=== PATIENT | female | born 1965 | race Caucasian/White ===

== ENCOUNTER → 2017-04-23 | Outpatient (CLI) | payer OTHER ==
--- NOTE | 2017-04-23 17:36 | US ---
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 Slightly elevated parathyroid labs GLAND SIZE: Right Lobe: 5.7 x 2.1 x 1.2 cm Overall Parenchyma: heterogenous Left Lobe: 5.3 x 1.3 x 1.4 cm Overall Parenchyma: heterogeneous Isthmus Thickness: 0.2 cm NODULES RIGHT: # of nodules measured on right: 2 1. 1.0 X 0.7 x 0.8 cm hypoechoic solid nodule at the mid pole with well-defined margins; interrupte d peripheral calcification. This nodule is wider than tall and shows intranodular vascularity. 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 1.6 X 0.7 x 1.4 cm isoechoic solid nodule at the mid pole with well-defined margins. This nodule is wider than tall and shows no intranodular vascularity. Prior size: YOUTH WORKER LEFT: # of nodules measured on left: 1 1. 1.2 X 1.0 x 1.0 cm hypoechoic solid nodule at the lower pole with well-defined margins. This no dule is wider than tall and shows intranodular vascularity. Prior size: YOUTH WORKER ISTHMUS: # of nodules measured in the isthmus: 0 Bilateral neck scanned, no evidence of lymphadenopathy. did not see any parathyroid tissue on the right left parathyroid seen and is 1.5cm IMPRESSION: The thyroid gland is enlarged with bilateral hypoechoic areas consistent with multinodular goiter. No dominant thyroid mass. Oval-shaped hypoechoic 16 x 7 mm mass posterior to the left thyroid gland consistent with an enlarged parathyroid gland.
== END | disposition home or self-care (01) ==
LOC: RADUSWWP 16:24
PROVIDERS: ATTEND Family Medicine
DX: E04.2 Nontoxic multinodular goiter (principal)
CPT/HCPCS: 76536

== ENCOUNTER → 2017-05-12 | Outpatient (CLI) | payer OTHER ==
--- NOTE | 2017-05-13 10:21 | MM ---
Reason for exam: screening (asymptomatic). Last mammogram was performed 1 year and 1 month ago. Physical Findings: A clinical breast exam by your physician is recommended on an annual basis and results should be correlated with mammographic findings. MG Screening Mammo w CAD Bilateral CC and MLO view(s) were taken. Prior study comparison: April 09, 2016, bilateral MG screening mammo w CAD. October 09, 2014, mammogram, performed at [facility]. February 24, 2013, mammogram, performed at [facility]. No significant changes when compared with prior studies. ASSESSMENT: Benign, BI-RAD 2 RECOMMENDATION: Routine screening mammogram of both breasts in 1 year.
== END | disposition home or self-care (01) ==
LOC: RADMAMWWP 16:53
PROVIDERS: ATTEND Family Medicine
DX: Z12.31 Encounter for screening mammogram for malignant neoplasm of breast (principal)

== ENCOUNTER 2017-06-08 12:20 | Day surgery (SDC) | payer OTHER ==
[2017-06-08 12:53] VITALS: RESP 16; TEMP 97.7
[2017-06-08 14:12] VITALS: BP 131/68; PULSE 63
--- NOTE | 2017-06-08 15:05 | US ---
ULTRASOUND GUIDED FNA THYROID BIOPSY: CLINICAL HISTORY: 2 greater than 1 cm right thyroid nodules and a single greater than 1 cm left thyro id nodules FINDINGS: The procedure was explained to the patient. The risks, complications, benefits and alternatives were discussed and any questions were answered. Informed consent was obtained. Patient was placed supin e on the ultrasound table and prepped and draped in the usual sterile fashion. Utilizing a 25 gauge needle, five passes were made into the 3 requested nodules. Patient was stable throughout the procedure. Pathology is pending. All elements of maximal barrier technique were utilized. IMPRESSION: 1. Successful ultrasound guided FNA thyroid biopsy.
== END 2017-06-08 14:00 | disposition home or self-care (01) ==
LOC: RADPROMAIN 12:20
PROVIDERS: ATTEND Physician Assistant Medical
DX: E04.2 Nontoxic multinodular goiter (principal); E21.3 Hyperparathyroidism, unspecified
CPT/HCPCS: 10022; 76942; 88173; 88305

== ENCOUNTER → 2017-06-30 | Outpatient (CLI) | payer OTHER ==
--- NOTE | 2017-06-30 12:22 | BD ---
EXAMINATION TYPE: MG DEXA axial skeleton. DATE OF EXAM: 06/30/2017 COMPARISON: NONE CLINICAL HISTORY: hyperparathyroidism and postmenopausal female Height: 5'10 Weight: 196 FRAX RISK QUESTIONS: Alcohol (3 or more units per day): no Family History (Parent hip fracture): no Glucocorticoids (More than 3mos): no (Ex: prednisone, prednisolone, methylprednisolone, dexamethasone, and hydrocortisone). History of Fracture in Adulthood: no Secondary Osteoporosis: 1. Type 1 Diabetes: no 2. Hyperthyroidism: no 3. Menopause before 45: no 4. Malnutrition: no 5. Chronic liver disease: no Rheumatoid Arthritis: no Current Tobacco Use: no RISK FACTORS HISTORY OF: If Premenopausal, do you have irregular periods: Hyperparathyroidism: yes MEDICATIONS: Additional Medications: Additional History: hyperparathyroid EXAM MEASUREMENTS: Bone mineral densitometry was performed using the [employer] System. Bone mineral density as measured about the Lumbar spine is: ----- L1-L4(G/cm2): 1.382 T Score Values are as follows: ----- L2: 1.4 ----- L3: 1.8 ----- L4: 2.0 ----- L1-L4: 1.7 Bone mineral density about the R hip (g/cm2): 0.957 Bone mineral density about the L hip (g/cm2): 1.009 T Score values are as follows: -----R Neck: -0.6 -----L Neck: -0.2 -----R Total: 0.9 -----L Total: 0.7 IMPRESSION: Normal (Values between +1 and -1 indicate normal bone mass). Consider repeating this study in 5 year s or sooner if there is some new clinical indication. NOTE: T-SCORE=SD OF THE YOUNG ADULT MEAN.
== END | disposition home or self-care (01) ==
LOC: RADBDWWP 11:14
PROVIDERS: ATTEND Family Medicine
DX: E21.3 Hyperparathyroidism, unspecified (principal)
CPT/HCPCS: 77080

== ENCOUNTER → 2019-05-18 | Outpatient (CLI) | payer OTHER ==
--- NOTE | 2019-05-19 09:05 | MM ---
Reason for exam: screening (asymptomatic). Last mammogram was performed 2 years ago. History: Patient is postmenopausal. Physical Findings: A clinical breast exam by your physician is recommended on an annual basis and results should be correlated with mammographic findings. MG Screening Mammo w CAD Bilateral CC and MLO view(s) were taken. Prior study comparison: May 12, 2017, bilateral MG screening mammo w CAD. April 09, 2016, bilateral MG screening mammo w CAD. The breast tissue is heterogeneously dense. This may lower the sensitivity of mammography. No suspicious abnormality. Stable left central medial middle depth focal asymmetry. No significant changes when compared with prior studies. ASSESSMENT: Negative, BI-RAD 1 RECOMMENDATION: Routine screening mammogram of both breasts in 1 year.
== END | disposition home or self-care (01) ==
LOC: RADMAMWWP 10:38
DX: Z12.31 Encounter for screening mammogram for malignant neoplasm of breast (principal)
CPT/HCPCS: 77067

== ENCOUNTER → 2020-05-28 | Outpatient (CLI) | payer OTHER ==
--- NOTE | 2020-05-29 09:20 | MM ---
Reason for exam: screening (asymptomatic). Last mammogram was performed 1 year ago. History: Patient is postmenopausal. Physical Findings: A clinical breast exam by your physician is recommended on an annual basis and results should be correlated with mammographic findings. MG Screening Mammo w CAD Bilateral CC and MLO view(s) were taken. Prior study comparison: May 18, 2019, bilateral MG screening mammo w CAD. May 12, 2017, bilateral MG screening mammo w CAD. The breast tissue is heterogeneously dense. This may lower the sensitivity of mammography. There is chronic nodularity in the left breast. No significant changes when compared with prior studies. ASSESSMENT: Benign, BI-RAD 2 RECOMMENDATION: Routine screening mammogram of both breasts in 1 year.
== END | disposition home or self-care (01) ==
LOC: RADMAMWWP 09:57
DX: Z12.31 Encounter for screening mammogram for malignant neoplasm of breast (principal)
CPT/HCPCS: 77067

== ENCOUNTER → 2020-11-26 | Outpatient (CLI) | payer OTHER ==
--- NOTE | 2020-11-26 14:03 | BD ---
EXAMINATION TYPE: Axial Bone Density DATE OF EXAM: 11/26/2020 COMPARISON: 06.30.2017 DEXA bone scan CLINICAL HISTORY: 55 YR OLD FEMALE....ICD-10 CODE: Z13.820 OSTEOPOROSIS SCREENING Height: 69.2 Weight: 210 FRAX RISK QUESTIONS: History of Fracture in Adulthood: YES RISK FACTORS HISTORY OF: HX OF RT ANKLE FX IN AUGUST 2020 Postmenopausal woman: YES, AT AGE 51 Hyperparathyroidism: YES Adrenal Insufficiency: NO MEDICATIONS: Additional Medications: VIT D Additional History: HYPERPARATHYROID, ARTHRITIS, EXAM MEASUREMENTS: Bone mineral densitometry was performed using the [employer] System. Bone mineral density as measured about the Lumbar spine is: ----- L1-L4(G/cm2): 1.285 T Score Values are as follows: ----- L1: 1.1 ----- L2: 1.1 ----- L3: 0.6 ----- L4: 0.7 ----- L1-L4: 0.9 Bone mineral density has: Decreased -8.2% SINCE: 06.30.2018 Bone mineral density about the R hip (g/cm2): 1.047 Bone mineral density about the L hip (g/cm2): 1.133 T Score values are as follows: -----R Neck: -0.5 -----L Neck: -0.4 -----R Total: 0.3 -----L Total: 1.0 Bone mineral density has: Decreased -3.1% SINCE: 06.30.2018 FRAX%s: THERE IS A 9.7% CHANCE FOR A MAJOR OSTEOPOROTIC FX AND A 0.3% FOR HIP......PROBABILITY FOR FX IN 10 YRS TIME IMPRESSION: Normal (Values between +1 and -1 indicate normal bone mass). Consider repeating this study in 5 year s or sooner if there is some new clinical indication. NOTE: T-SCORE=SD OF THE YOUNG ADULT MEAN.
== END | disposition home or self-care (01) ==
LOC: RADBDWWP 10:11
PROVIDERS: ATTEND Family Medicine
DX: Z13.820 Encounter for screening for osteoporosis (principal)
CPT/HCPCS: 77080

== ENCOUNTER → 2021-04-24 | Outpatient (CLI) | payer OTHER ==
--- NOTE | 2021-04-25 08:28 | US ---
EXAMINATION TYPE: US thyroid st tissue head/neck DATE OF EXAM: 04/24/2021 COMPARISON: US 2017 CLINICAL HISTORY: E21.0 Primary hyperparathyroidism. GLAND SIZE: Right Lobe: 5.8 x 1.2 x 2.4 cm Overall Parenchyma: homogenous Left Lobe: 4.9 x 1.7 x 1.8 cm Overall Parenchyma: homogeneous Isthmus Thickness: 0.3 cm NODULES RIGHT: # of nodules measured on right: 2 1. 1.0 X 0.7 x 0.7 cm, lower medial, solid or almost completely solid, hypoechoic nodule with calci fied rim, which is taller than wide, with smooth margins, without echogenic foci. Prior size: 1.0 x 0.7 x 0.8 cm 2. 1.7 X 0.7 x 1.1 cm, upper lateral, solid or almost completely solid, hypoechoic nodule, which is wider than tall, with smooth margins, without echogenic foci. Prior size: 1.6 x 0.7 x 1.4 cm LEFT: # of nodules measured on left: 1 1. 1.3 X 0.9 x 1.0 cm, upper mid, solid or almost completely solid, hypoechoic nodule, which is wid er than tall, with smooth margins, without echogenic foci. Prior size: 1.2 x 1.0 x 1.0 cm ISTHMUS: # of nodules measured in the isthmus: 0 Bilateral neck scanned, parathyroid seen posterior to left thyroid lobe measuring 1.5 x 0.9 x 1.4cm . IMPRESSION: Bilateral thyroid nodules appear similar to the prior exam 2017 ACR TI-RADS LEVEL: TR-RADS 4 - Moderately Suspicious: Follow if > 1 cm, FNA if > 1.5 cm *Highest TI-RADS level nodule reported
== END | disposition home or self-care (01) ==
LOC: RADUSWWP 15:38
DX: E04.2 Nontoxic multinodular goiter (principal); E21.0 Primary hyperparathyroidism
CPT/HCPCS: 76536

== ENCOUNTER → 2021-07-07 | Outpatient (CLI) | payer OTHER ==
[2021-07-07 21:37] LABS: T4, Free (Free Thyroxine) 1.34 ng/dL (0.800-1.800)
[2021-07-08 02:42] LABS: African American GFR (CKD) 98.2 (60.0-200.0); Albumin 4.3 g/dL (3.8-4.9); Albumin/Globulin Ratio 1.8 (1.60-3.17); Anion Gap 11.3 mmol/L (4.00-12.00); BUN/Creat Ratio 27.11 Ratio (12.00-20.00); Blood Urea Nitrogen 21.2 mg/dL (9.0-27.0); Calcium 9.9 mg/dL (8.7-10.3); Carbon Dioxide 22.1 mmol/L (21.6-31.8); Globulin 2.4 g/dL (1.6-3.3); Non-African American GFR(CKD) 84.7 (60.0-200.0); Potassium 3.9 mmol/L (3.5-5.5); Total Bilirubin 0.7 mg/dL (0.30-1.20); Total Protein 6.8 g/dL (6.2-8.2)
== END | disposition home or self-care (01) ==
LOC: LABWHC1 13:42
PROVIDERS: ATTEND Internal Medicine Endocrinology, Diabetes & Metabolism
DX: E21.3 Hyperparathyroidism, unspecified (principal); E55.9 Vitamin D deficiency, unspecified; E04.2 Nontoxic multinodular goiter
CPT/HCPCS: 36415; 80053; 82306; 83970; 84439; 84443; 84480

== ENCOUNTER → 2021-08-12 | Outpatient (CLI) | payer OTHER ==
--- NOTE | 2021-08-12 13:50 | US ---
EXAMINATION TYPE: US thyroid st tissue head/neck DATE OF EXAM: 08/12/2021 COMPARISON: Prior thyroid ultrasound April 24, 2021 and older studies CLINICAL HISTORY: E04.2 MULTINODULAR GOITER. f/u exam GLAND SIZE: Right Lobe: 5.8 x 1.8 x 1.9 cm Overall Parenchyma: heterogenous Left Lobe: 5.4 x 1.6 x 1.8 cm Overall Parenchyma: heterogeneous Isthmus Thickness: 0.3 cm NODULES RIGHT: # of nodules measured on right: 2 1. 1.6 X 0.8 x 1.2 cm, lower solid or almost completely solid, hypoechoic nodule, which is wider t rhoades tall, with smooth margins, without echogenic foci. Prior size: 1.0 x 0.7 x 0.7 cm 2. 1.7 X 0.7 x 1.1 cm, upper, solid or almost completely solid, hypoechoic nodule, which is wider t rhoades tall, with smooth margins, without echogenic foci. Prior size: 1.7 x 0.7 x 1.1 cm LEFT: # of nodules measured on left: 2 1. 1.2 X 1.0 x 0.8 cm, upper, solid or almost completely solid, hypoechoic nodule, which is wider t rhoades tall, with smooth margins, with echogenic foci. Prior size: 1.3 x 1.0 x 0.9 cm 2. 0.9 X 1.0 x 0.5 cm, lower , cystic or almost completely cystic, anechoic nodule, which is wider than tall, with smooth margins, without echogenic foci. 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 Heterogeneous normal-sized thyroid with stable 1.6 cm hypoechoic nodule which was measured as 2 small er nodules on prior ultrasound and stable solid 1.2 cm left thyroid nodule. Smaller cystic thyroid no dule presumed stable was not measured on prior study. Stable hypoechoic nodule posterior or deep to t he left thyroid lobe. IMPRESSION: Findings consistent with multinodular goiter redemonstrated. No new suspicious nodules se en. Cannot exclude left-sided parathyroid adenoma. Correlate clinically. No significant change from m ost recent prior.
== END | disposition home or self-care (01) ==
LOC: RADUSWWP 12:24
PROVIDERS: ATTEND Internal Medicine Endocrinology, Diabetes & Metabolism
DX: E04.2 Nontoxic multinodular goiter (principal)
CPT/HCPCS: 76536

== ENCOUNTER → 2021-09-08 | Outpatient (CLI) | payer OTHER ==
--- NOTE | 2021-09-08 15:51 | NM ---
EXAMINATION TYPE: NM parathyroid DATE OF EXAM: 09/08/2021 COMPARISON: NONE HISTORY: E21.0 Primary hyperparathyroid TECHNIQUE: Following administration of 24.3 mCi Tc99m Sestamibi. Anterior projection images of the neck and ches t were obtained 10 minutes and 3 hours post injection FINDINGS: Thyroid tracer washout: Delayed images demonstrate near-complete tracer washout from the thyroid. Parathyroid uptake: There is increased radiotracer accumulation involving the lower pole of the thyro id gland on delayed imaging felt to Reflect parathyroid adenoma. Normal uptake: There is physiological tracer uptake in the myocardium, liver, salivary glands, and th yroid gland. IMPRESSION: I cannot exclude parathyroid adenoma overlying the lower pole of the left thyroid lobe.
== END | disposition home or self-care (01) ==
LOC: RADNMMAIN 10:56
PROVIDERS: ATTEND Internal Medicine Endocrinology, Diabetes & Metabolism
DX: E21.0 Primary hyperparathyroidism (principal)
CPT/HCPCS: 78070; A9500

== ENCOUNTER → 2021-12-02 | Outpatient (CLI) | payer OTHER ==
--- NOTE | 2021-12-03 09:11 | MM ---
Reason for exam: screening (asymptomatic). Last mammogram was performed 1 year and 6 months ago. History: Patient is postmenopausal. Physical Findings: A clinical breast exam by your physician is recommended on an annual basis and results should be correlated with mammographic findings. MG Screening Mammo w CAD Bilateral CC and MLO view(s) were taken. Prior study comparison: May 28, 2020, bilateral MG screening mammo w CAD. May 18, 2019, bilateral MG screening mammo w CAD. The breast tissue is heterogeneously dense. This may lower the sensitivity of mammography. There is chronic nodularity in the left breast. There is no dominant lesion. No significant changes when compared with prior studies. ASSESSMENT: Benign, BI-RAD 2 RECOMMENDATION: Routine screening mammogram of both breasts in 1 year.
== END | disposition home or self-care (01) ==
LOC: RADMAMWWP 11:12
PROVIDERS: ATTEND Family Medicine
DX: Z12.31 Encounter for screening mammogram for malignant neoplasm of breast (principal); Z78.0 Asymptomatic menopausal state
CPT/HCPCS: 77067

== ENCOUNTER 2022-06-24 08:34 | Day surgery (SDC) | payer OTHER ==
[2022-06-22 13:09] VITALS: BMI 28.3
[~2022-06-24 08:34] MED LIST: LACTATED RINGERS 1,000 ML IV SCH
[2022-06-24 08:53] VITALS: RESP 16; TEMP 96.5
[2022-06-24] MEDS ORDERED: PROPOFOL 10 MG/ML 20 ML VIAL IV ONE (09:05)
--- NOTE | 2022-06-24 09:29 | P.PCN ---
Date of Procedure: 06/24/22 Procedure(s) Performed: BRIEF HISTORY: Patient is a 56-year-old pleasant white female scheduled for an elective colonoscopy as a part of screening for colorectal neoplasia PROCEDURE PERFORMED: Colonoscopy with snare polypectomy. PREOPERATIVE DIAGNOSIS: Screening for colon cancer. IV sedation per Anesthesia. PROCEDURE: After informed consent was obtained, the patient, was brought into the endoscopy unit. IV sedation was administered by Anesthesia under continuous monitoring. Digital rectal examination was normal. Initially the Olympus CF-160 flexible video colonoscope was then inserted in the rectum, gradually advanced into the cecum without any difficulty. Careful examination was performed as the scope was gradually being withdrawn. Ileocecal valve and the appendiceal orifice were visualized and appeared normal. Prep was excellent. Mucosa of the cecum, appeared normal. Ascending colon there was a 3 cm broad-based polyp that was removed by piecemeal snare polypectomy and complete polypectomy was accomplished. Rest of the ascending colon, transverse colon, descending colon, sigmoid colon, and rectum appeared normal. Retroflexion was performed in the rectum and no lesions were seen. The patient tolerated the procedure well. IMPRESSION: 3 cm broad-based ascending colon polyps is post piecemeal snare polypectomy and complete polypectomy accomplished Scattered sigmoid diverticulosis Rest of the colon appeared normal RECOMMENDATIONS: Findings of this examination were discussed with the patient as well as her family. He was advised to follow with the biopsy results. If the biopsy results adenoma she can have a repeat colonoscopy in 3 years.
[2022-06-24 09:48] VITALS: BP 123/76; PULSE 62
== END 2022-06-24 10:05 | disposition home or self-care (01) ==
LOC: ORWHC2ENDO 08:34
PROVIDERS: ATTEND Internal Medicine Gastroenterology
DX: Z12.11 Encounter for screening for malignant neoplasm of colon (principal); K63.5 Polyp of colon; K57.30 Diverticulosis of large intestine without perforation or abscess without bleeding; E21.3 Hyperparathyroidism, unspecified; E11.9 Type 2 diabetes mellitus without complications; Z79.899 Other long term (current) drug therapy; Z98.890 Other specified postprocedural states
CPT/HCPCS: 88305; 45385; J2704

== ENCOUNTER 2023-01-18 19:57 | Emergency (ER) | payer OTHER ==
[2023-01-18 20:28] VITALS: RESP 18
--- NOTE | 2023-01-18 22:21 | CT ---
EXAMINATION TYPE: CT hip LT wo con DATE OF EXAM: 01/18/2023 COMPARISON: None HISTORY: hip pain x [address] DLP: 889.8 mGycm Automated exposure control for dose reduction was used. Contrast: None Technique: Axial sections at 3 mm thick sections, reconstructed images in coronal and sagittal plane are reviewed. 3-D reconstructed images performed on a separate computer by technologist are reviewed. FINDINGS: No acute fractures are evident. Femoral head articulates with the acetabulum. Joint spaces diffusely narrowed. Soft tissues appear unremarkable. MRI can be performed if additional evaluation would be of benefit. IMPRESSION: 1. NO ACUTE OSSEOUS ABNORMALITY LEFT HIP.
--- NOTE | 2023-01-18 22:36 | ED ---
General Adult HPI - General Chief complaint: Extremity Problem,Nontraumatic Stated complaint: left hip pain Time Seen by Provider: 01/18/23 21:22 Source: patient Mode of arrival: ambulatory Limitations: no limitations - History of Present Illness Initial comments: Patient is a 57-year-old female presenting with chief complaint of left-sided hip pain. Pain is been ongoing for the last week. Patient denies any injury or trauma. She obtained x-rays last week which were negative. She admits to pain at rest and with weightbearing. She denies any back pain. She does admit to pain radiating down the leg with some paresthesia. She is currently taking Tylenol 3 and prednisone prescribed by her PCP. No fevers, chills, redness, swelling, warmth, discharge. - Related Data Home Medications Medication Instructions Recorded Confirmed Cholecalciferol [Vitamin D3 (25 50 mcg PO DAILY 06/22/22 06/24/22 Mcg = 1000 Iu)] Allergies Allergy/AdvReac Type Severity Reaction Status Date / Time No Known Allergies Allergy Verified 06/24/22 08:49 Review of Systems ROS Statement: Those systems with pertinent positive or pertinent negative responses have been documented in the HPI. ROS Other: All systems not noted in ROS Statement are negative. Past Medical History Past Medical History: Diabetes Mellitus Additional Past Medical History / Comment(s): Hx Gestational Diabetes 20 years ago. Parathyroid problems. History of Any Multi-Drug Resistant Organisms: None Reported Past Surgical History: Orthopedic Surgery Additional Past Surgical History / Comment(s): Knee surgery. Past Anesthesia/Blood Transfusion Reactions: Family History of Problems w/ Anesthesia Additional Past Anesthesia/Blood Transfusion Reaction / Comment(s): Mom slow to wake up. Past Psychological History: No Psychological Hx Reported Smoking Status: Never smoker Past Alcohol Use History: None Reported Past Drug Use History: None Reported - Past Family History Mother Family Medical History: Hypertension Father Family Medical History: Cancer, Congestive Heart Failure (CHF), COPD General Exam Limitations: no limitations General appearance: alert, in no apparent distress Head exam: Present: atraumatic, normocephalic, normal inspection Eye exam: Present: normal appearance, EOMI. Absent: periorbital swelling Neck exam: Present: normal inspection, full ROM Extremities exam: Present: normal inspection, full ROM, tenderness Neurological exam: Present: alert, oriented X3, CN II-XII intact Psychiatric exam: Present: normal affect, normal mood Skin exam: Present: warm, dry, intact, normal color. Absent: rash Course Vital Signs 01/18/23 20:23 Pulse Rate 64 Respiratory 18 Rate Blood Pressure 159/83 O2 Sat by Pulse 97 Oximetry Medical Decision Making - Medical Decision Making Was pt. sent in by a medical professional or institution (, PA, CIGARETTE EXAMINER, urgent care, hospital, or alf...) When possible be specific @ -No Did you speak to anyone other than the patient for history (EMS, parent, family, police, friend...)? What history was obtained from this source @ -No Did you review nursing and triage notes (agree or disagree)? Why? @ -I reviewed and agree with nursing and triage notes Were old charts reviewed (outside hosp., previous admission, EMS record, old EKG, old radiological studies, urgent care reports/EKG's, alf records)? Report findings @ -No old charts were reviewed Differential Diagnosis (chest pain, altered mental status, abdominal pain women, abdominal pain men, vaginal bleeding, weakness, fever, dyspnea, syncope, headache, dizziness, GI bleed, back pain, seizure, CVA, palpatations, mental health, musculoskeletal)? @ -Differential Musculoskeletal Muscular strain, contusion, ligament sprain, fracture, arthritis, septic arthritis, bursitis, cellulitis, muscle spasm, nerve compression, DVT, arterial occlusion, herpes zoster, electrolyte abnormality, tumor.... This is not meant to be in all inclusive list EKG interpreted by me (3pts min.). @ -As above X-rays interpreted by me (1pt min.). @ -None done CT interpreted by me (1pt min.). @ -CT shows no acute process U/S interpreted by me (1pt. min.). @ -None done What testing was considered but not performed or refused? (CT, X-rays, U/S, labs)? Why? @ -None What meds were considered but not given or refused? Why? @ -None Did you discuss the management of the patient with other professionals (professionals i.e. , PA, CIGARETTE EXAMINER, lab, RT, psych nurse, social group worker, pilot boat deckhand, teacher, marine safety officer, correctional counselor/case manager)? Give summary @ -No Was smoking cessation discussed for >3mins.? @ -No Was critical care preformed (if so, how long)? @ -No Were there social determinants of health that impacted care today? How? (Homelessness, low income, unemployed, alcoholism, drug addiction, transportation, low edu. Level, literacy, decrease access to med. care, halfway, rehab)? @ -No Was there de-escalation of care discussed even if they declined (Discuss DNR or withdrawal of care, Hospice)? DNR status @ -No What co-morbidities impacted this encounter? (DM, HTN, Smoking, COPD, CAD, Canc er, CVA, ARF, Chemo, Hep., AIDS, mental health diagnosis, sleep apnea, morbid obesity)? @ -None Was patient admitted / discharged? Hospital course, mention meds given and route, prescriptions, significant lab abnormalities, going to OR and other pertinent info. @ -Patient is a 57-year-old female presenting with chief complaint of left-sided pain has been ongoing for weeks. Previously negative x-rays, no injury, currently taking Tylenol 3 and prednisone. On physical examination neurovascularly intact, no swelling, redness, warmth. CT is negative for any acute process. Patient is educated on these findings. Instructed to follow-up with orthopedics. Follow-up with PCP. Report back to ER with any new or worsening symptoms. Discussed return parameters and answered all questions. Patient conveyed verbal understanding and agreed to the plan. I discussed this case in detail with my attending Dr. Pedroza Undiagnosed new problem with uncertain prognosis? @ -No Drug Therapy requiring intensive monitoring for toxicity (Heparin, Nitro, I nsulin, Cardizem)? @ -No Were any procedures done? @ -No Diagnosis/symptom? @ -Hip pain Acute, or Chronic, or Acute on Chronic? @ -Acute Uncomplicated (without systemic symptoms) or Complicated (systemic symptoms)? @ -Uncomplicated Side effects of treatment? @ -No Exacerbation, Progression, or Severe Exacerbation? @ -No Poses a threat to life or bodily function? How? (Chest pain, [place], [place], pneumonia, PE, COPD, DKA, ARF, appy, cholecystitis, CVA, Diverticulitis, Homicidal, Suicidal, threat to staff... and all critical care pts) @ -No Disposition Clinical Impression: Hip pain Disposition: HOME SELF-CARE Condition: Good Instructions (If sedation given, give patient instructions): Hip Pain (ED) Additional Instructions: Follow-up with PCP. Report back to ER with any new or worsening symptoms. Continue taking medication as prescribed. Is patient prescribed a controlled substance at d/c from ED?: No Referrals: [facility],Clinic [Primary Care Provider] - 1-2 days Max Aldana PAC [PHYSICIAN MODEL BUILDER] - 1-2 days Time of Disposition: 22:36
[2023-01-18 23:32] VITALS: BP 158/73; PULSE 54; TEMP 97.9
== END 2023-01-18 23:15 | disposition home or self-care (01) ==
LOC: EC 19:57
DX: M25.552 Pain in left hip (principal)
CPT/HCPCS: 99283

== ENCOUNTER 2023-01-29 06:46 | Day surgery (SDC) | payer OTHER ==
[2023-01-27 08:43] VITALS: BMI 28.7
[~2023-01-29 06:46] MED LIST changes: +ACETAMINOPHEN TAB 500 MG TAB PO PRN; +DEXAMETHASONE SOD PHOSPHATE 4 MG/ML 1 ML VIAL IV ONE; +HEPARIN SODIUM,PORCINE/PF 5,000 UNIT/0.5 ML SYRINGE SQ PRN; -LACTATED RINGERS 1,000 ML IV SCH; +MIDAZOLAM 2 MG/2 ML VIAL IV PRN; +ONDANSETRON 4 MG/2 ML VIAL IVP ONE; +Pre Op ABX Message 1 EACH MISC MISCELLANE ONE; +SCOPOLAMINE 1 MG/72 HR PATCH TRANSDERM ONE
[2023-01-29] MEDS ORDERED: LACTATED RINGERS 1,000 ML IV ONE ×3 (06:58→09:59)
[2023-01-29] MEDS ORDERED: HYDROmorphone 0.5 MG/0.5 ML SYRINGE IVP PRN (07:00)
[2023-01-29 07:26] LABS: Glucose,Whole Blood 212 mg/dL (70-110)
[2023-01-29] MEDS ORDERED: KETOROLAC 30 MG/ML 1 ML VIAL ONE (07:47)
[2023-01-29] MEDS ORDERED: ROCURONIUM 10 MG/ML (5 ML VIAL) IV ONE (07:47)
[2023-01-29] MEDS ORDERED: LIDOCAINE 2% INJ 20 MG/ML (2 ML VIAL) ONE (07:47)
[2023-01-29] MEDS ORDERED: HYDROmorphone (PF) 1 MG/ML ONE (07:47)
[2023-01-29] MEDS ORDERED: fentaNYL (PF) 50 MCG/ML 2 ML AMP ONE (07:47)
[2023-01-29] MEDS ORDERED: ceFAZolin 1,000 MG VIAL ONE (07:47)
[2023-01-29] MEDS ORDERED: PROPOFOL 10 MG/ML 20 ML VIAL IV ONE (07:47)
[2023-01-29] MEDS ORDERED: MIDAZOLAM 2 MG/2 ML VIAL ONE (07:47)
[2023-01-29] MEDS ORDERED: SODIUM CHLORIDE 0.9% 100 ML BAG ONE (07:47)
[2023-01-29] MEDS ORDERED: SODIUM CHLORIDE 0.9% 50 ML with ceFAZolin 2,000 MG IV ONE ×2 (08:07)
[2023-01-29] MEDS ORDERED: BUPIVACAIN-EPI 0.25%-1:200,000 30 ML VIAL SQ ONE (09:31)
[2023-01-29] MEDS ORDERED: ACETAMINOPHEN TAB 325 MG TAB PO PRN (09:59)
[2023-01-29] MEDS ORDERED: HYDROcodone/APAP 5-325MG 1 EACH TAB PO PRN (09:59)
[2023-01-29] MEDS ORDERED: NALOXONE 0.4 MG/ML 1 ML VIAL IV PRN (09:59)
--- NOTE | 2023-01-29 09:59 | P.OP ---
Date of Procedure: 01/29/23 Preoperative Diagnosis: Left lower parathyroid adenoma Postoperative Diagnosis: Left upper parathyroid adenoma Procedure(s) Performed: Left upper parathyroidectomy Anesthesia: MELONIE Surgeon: Martin Camargo Estimated Blood Loss (ml): 10 Pathology: other (Parathyroid adenoma) Condition: stable Disposition: PACU Description of Procedure: The patient's placed on the operating table in supine position. She was received general endotracheal anesthesia. Her neck was prepped and draped in usual sterile fashion. A standard [place] incision was made approximately 2 cm above the sternal notch. Using left cautery the subcutaneous tissues were divided. The platysma was divided. And then the strap muscles were divided midline. A pair of retractors placed a wound. And then the left strap muscle retracted laterally. The thyroid gland was exposed. The patient's parathyroid scan had localized the parathyroid adenoma to the left lower position. This area is inspected. There appeared to be evidence of parathyroid tissue in the left lower position. This was meticulous he dissected free. It was sent to pathology for a frozen section. He was found to be normal appearing parathyroid tissue without evidence of adenoma. Another specimen sent to frozen section in the same area which was benign fat tissue. This point the thyroid gland was retracted medially. And in the left upper position a parathyroid adenoma was found. It had the classical appearance of a fleshy aaron nodule. Using meticulous dissection this was dissected free and sent to pathology. Frozen section confirmed the adenoma. The wound was irrigated there is no bleeding seen. The strap muscles were approximately with 3-0 Vicryl suture. The platysma was closed with 3-0 Vicryl suture. Serosal interrupted 3-0 Monocryl suture. Dermabond was applied. Patient top she will sent to recovery in stable condition.
[2023-01-29 10:35] LABS: Glucose,Whole Blood 339 mg/dL (70-110)
[2023-01-29] MEDS ORDERED: INSULIN ASPART (NovoLOG) 100 UNIT/ML VIAL SQ ONE (10:41)
[2023-01-29] MEDS: ONDANSETRON 4 MG/2 ML VIAL IVP PRN ×2 (11:03→19:46)
[2023-01-29] MEDS ORDERED: PROCHLORPERAZINE INJ 10 MG/2 ML VIAL IVP PRN (11:32)
[2023-01-29 11:55] LABS: Glucose,Whole Blood 251 mg/dL (70-110)
[2023-01-29] MEDS: LACTATED RINGERS 1,000 ML IV SCH (12:11)
[2023-01-29] MEDS: KETOROLAC 15 MG/ML 1 ML VIAL IVP SCH ×3 (12:23→23:16)
--- NOTE | 2023-01-29 15:06 | P.CONS ---
History of Present Illness - Reason for Consult Consult date: 01/29/23 Medical Management Requesting physician: Martin Camargo - History of Present Illness History of Presenting Illness: Patient is a very pleasant 57-year-old female with a past medical history of gestational diabetes, thyroid goiter, and parathyroid adenoma. Patient is currently admitted under Gen. surgery team status post parathyroidectomy. We have been consulted for medical management and treatment of patient's hyperglycemia throughout hospitalization. Patient seen and fully evaluated at bedside. Patient just returned from operating room. Patient extremely nauseous despite administration of Zofran. Order placed for Compazine 10 mg IVP. Family at bedside. Patient currently reports nausea and mild postoperative discomfort. She denies having any headache, lightheadedness, dizziness, chest pain, palpitations, shortness of breath, cough or congestion, or experiencing any numbness/tingling/weakness in her extremities. Review of systems: Pertinent positives and negatives as discussed in HPI, a complete review of systems was performed and all other systems are negative. Physical exam: Vital signs reviewed and stable. General: Nontoxic, no distress and appears stated age. Derm: Skin warm and dry, normal coloration for ethnicity. Head/Neck: Atraumatic, normocephalic and symmetric. Post-operative incision lower horizontal neck intact. Airway patent. Eyes: EOMs intact, no lid lag, and anicteric sclera Mouth: no lip lesions, mucus membranes moist Cardiovascular: regular rate and rhythm with normal S1S2, no murmur, positive posterior tibial pulses bilaterally, and cap refill < 2 seconds. Lungs: Respirations even, regular, and unlabored on room air. Lungs CTA bilaterally, no rhonchi, no rales, no wheezing, and no accessory muscle usage. Abdominal: soft, nontender to palpation, no guarding, no appreciable organomegaly Ext: ROM intact. No gross muscle atrophy, no edema, no contractures Neuro: Speech clear, face symmetrical and CN II-XII grossly intact with no noted focal neuro deficits Psych: Alert and oriented to person, place, time, and situation. Appropriate and pleasant affect. Assessment and Plan of Care: Hyperglycemia -Blood glucose levels ranging from 212-339 throughout hospitalization. Orders placed for glycemic protocol with NovoLog sliding scale ACHS and a stat hemoglobin A1c as patient denies history of diabetes mellitus. Status post parathyroidectomy -Postop calcium 9.2 Will repeat in 6 hours and again tomorrow morning. Calcium levels to be replaced as indicated based upon these results. -Postoperative incisional management per primary admitting general surgery team. -Symptomatic care and pain management. Thank you for allowing us to participate in the care of this pleasant patient. Do not hesitate to contact us with questions. Someone can be reached from the [facility] hospitalist group all hours of the day at [phone] or via [employer]. Patient was seen independently by Nurse Practitioner. This document was prepared using [employer] dictation software. Please allow for errors in glass deposition tender while rare they do occur. I reviewed the documentation as provided by the BRANDON above, who is the original author of this note. I agree with the documented assessment and plan, with the following changes: none Past Medical History Past Medical History: Diabetes Mellitus Additional Past Medical History / Comment(s): Hx Gestational Diabetes 20 years ago. Parathyroid problems. diet control DM, GOITER ON THYROID, HAS BEEN HAVING PAIN IN LT HIP FOR PAST 10 DAYS History of Any Multi-Drug Resistant Organisms: None Reported Past Surgical History: Orthopedic Surgery Additional Past Surgical History / Comment(s): RT Knee surgery. COLONOSCOPY Past Anesthesia/Blood Transfusion Reactions: Family History of Problems w/ Anesthesia Additional Past Anesthesia/Blood Transfusion Reaction / Comm: Mom slow to wake up. Smoking Status: Never smoker - Past Family History Mother Family Medical History: Hypertension Father Family Medical History: Cancer, Congestive Heart Failure (CHF), COPD Medications and Allergies Home Medications Medication Instructions Recorded Confirmed Type Cholecalciferol [Vitamin D3 (25 50 mcg PO DAILY 06/22/22 01/29/23 History Mcg = 1000 Iu)] Acetaminophen Tab [Tylenol] 650 mg PO Q6H #30 tab 01/30/23 Rx Ibuprofen [Motrin] 600 mg PO Q6HR PRN #40 tab 01/30/23 Rx metFORMIN HCL [Glucophage] 500 mg PO BID 30 Days #60 tab 01/30/23 Rx Allergies Allergy/AdvReac Type Severity Reaction Status Date / Time No Known Allergies Allergy Verified 01/29/23 07:00 Physical Exam Vitals: Vital Signs Temp Pulse Pulse Resp BP Pulse Ox 01/29/23 10:36 58 L 16 148/77 98 01/29/23 10:20 61 16 146/70 100 01/29/23 10:04 55 L 16 149/74 100 01/29/23 09:49 96.9 F L 57 L 16 132/74 96 01/29/23 07:07 98 F 65 16 169/75 95 Intake and Output 01/28/23 01/29/23 01/29/23 22:59 06:59 14:59 Intake Total 100 1350 Output Total 10 Balance 100 1340 Intake: IV 100 1350 Output: Estimated Blood Loss 10 Other: Weight 89.9 kg Results CBC & Chem 7: 01/30/23 04:04 01/30/23 04:04 Labs: Abnormal Lab Results - Last 24 Hours (Table) 01/29/23 01/29/23 01/29/23 Range/Units 07:20 07:29 10:34 POC Glucose (mg/dL) 212 H 339 H (70-110) mg/dL Calcium 10.3 H (8.4-10.2) mg/dL
[2023-01-29 17:00] LABS: Glucose,Whole Blood 214 mg/dL (70-110)
[2023-01-29] MEDS ORDERED: DEXTROSE 50% SYRINGE 50 ML IVP PRN ×2 (19:39)
[2023-01-29 20:06] LABS: Glucose,Whole Blood 202 mg/dL (70-110)
[2023-01-30 06:08] LABS: Glucose,Whole Blood 194 mg/dL (70-110)
[2023-01-30] MEDS: KETOROLAC 15 MG/ML 1 ML VIAL IVP SCH ×2 (06:15→12:58)
[2023-01-30] MEDS: LACTATED RINGERS 1,000 ML IV SCH (06:15)
[2023-01-30] MEDS ORDERED: ENOXAPARIN 40 MG/0.4 ML SYRINGE SQ SCH (09:00)
--- NOTE | 2023-01-30 09:29 | P.DS ---
Providers Date of admission: 01/29/2023 Expected date of discharge: 01/30/23 Attending physician: Martin Camargo Consults: 01/29/23 09:59 Consult Physician Routine Consulting Provider: Franky Andrea Consult Reason/Comments: medical management Do you want consulting provider notified?: Yes Primary care physician: [facility] Hospital Course: Is a 49-year-old female who underwent excision of parathyroid adenoma. Patient's postoperative normal. Please see hospital chart for details. Procedures: Excision of left parathyroid adenoma Patient Condition at Discharge: Good Plan - Discharge Summary Discharge Rx Participant: No New Discharge Prescriptions: New Ibuprofen [Motrin] 600 mg PO Q6HR PRN #40 tab PRN Reason: Pain Acetaminophen Tab [Tylenol] 650 mg PO Q6H #30 tab No Action Cholecalciferol [Vitamin D3 (25 Mcg = 1000 Iu)] 50 mcg PO DAILY Discharge Medication List Cholecalciferol [Vitamin D3 (25 Mcg = 1000 Iu)] 50 mcg PO DAILY 06/22/22 [History] Acetaminophen Tab [Tylenol] 650 mg PO Q6H #30 tab 01/30/23 [Rx] Ibuprofen [Motrin] 600 mg PO Q6HR PRN #40 tab 01/30/23 [Rx] Follow up Appointment(s)/Referral(s): Martin Camargo MD [STAFF PHYSICIAN] - 1 Week Tayler Merida MD [STAFF PHYSICIAN] - 1 Week Discharge Disposition: HOME SELF-CARE
[2023-01-30 10:11] LABS: HCT 36.9 % (37.2-46.3); HGB 12.4 g/dL (12.0-15.0); MCH 28.6 pg (27.0-32.0); MCHC 33.6 g/dL (32.0-37.0); MCV 85.2 fL (80.0-97.0); Mean Platelet Volume 12.1 fL (9.5-12.2); NRBC Per 100 WBC 0 /100 WBCS (0.0-0.0); Platelet Count 199 X 10*3/uL (140-440); RBC 4.33 X 10*6/uL (4.10-5.20); RDW 13.7 % (11.5-14.5); WBC 16.28 X 10*3/uL (4.50-10.00)
[2023-01-30 10:21] LABS: African American GFR (CKD) 94.2 (60.0-200.0); Albumin 3.7 g/dL (3.8-4.9); Albumin/Globulin Ratio 1.68 (1.60-3.17); Anion Gap 9.9 mmol/L (10.00-18.00); BUN/Creat Ratio 21.25 Ratio (12.00-20.00); Calcium 8.6 mg/dL (8.7-10.3); Carbon Dioxide 25.1 mmol/L (20.0-27.5); Globulin 2.2 g/dL (1.6-3.3); Magnesium 1.7 mg/dL (1.5-2.4); Non-African American GFR(CKD) 81.3 (60.0-200.0); Potassium 3.8 mmol/L (3.5-5.5); Total Bilirubin 0.7 mg/dL (0.30-1.20); Total Protein 5.9 g/dL (6.2-8.2)
[2023-01-30 11:18] LABS: Glucose,Whole Blood 263 mg/dL (70-110)
[2023-01-30 13:53] VITALS: BP 120/72; PULSE 64; RESP 17; TEMP 98
[2023-01-30] MEDS ORDERED: GLYCOPYRROLATE 0.2 MG/ML 2 ML VIAL IVP PRN (15:08)
--- NOTE | 2023-01-30 15:14 | P.PN ---
Subjective Progress Note Date: 01/30/23 History of Presenting Illness: Patient is a very pleasant 57-year-old female with a past medical history of gestational diabetes, thyroid goiter, and parathyroid adenoma. Patient is cu rrently admitted under Gen. surgery team status post parathyroidectomy. We have been consulted for medical management and treatment of patient's hyperglycemia throughout hospitalization. Physical exam: Patient seen and fully evaluated at bedside. Patient reports minimal to no postoperative pain and denies having any difficulty swallowing. Patient eating breakfast without any difficulties. Patient denies having any complaints or concerns at this time. Patient educated that she has newly diagnosed diabetes mellitus and is being discharged home on metformin 500 mg twice daily, all questions answered at this time. Patient denies having any further needs, questions, or concerns. Vital signs reviewed and stable. General: Nontoxic, no distress and appears stated age. Derm: Skin warm and dry, normal coloration for ethnicity. Head/Neck: Atraumatic, normocephalic and symmetric. Post-operative incision lower horizontal neck intact. Airway patent. Eyes: EOMs intact, no lid lag, and anicteric sclera Mouth: no lip lesions, mucus membranes moist Cardiovascular: regular rate and rhythm with normal S1S2, no murmur, positive posterior tibial pulses bilaterally, and cap refill < 2 seconds. Lungs: Respirations even, regular, and unlabored on room air. Lungs CTA bilaterally, no rhonchi, no rales, no wheezing, and no accessory muscle usage. Abdominal: soft, nontender to palpation, no guarding, no appreciable organomegaly Ext: ROM intact. No gross muscle atrophy, no edema, no contractures Neuro: Speech clear, face symmetrical and CN II-XII grossly intact with no noted focal neuro deficits Psych: Alert and oriented to person, place, time, and situation. Appropriate and pleasant affect. Assessment and Plan of Care: Newly diagnosed type 2 diabetes mellitus with a hemoglobin A1c of 7.6% Hyperglycemia -Blood glucose levels ranging from 212-339 throughout hospitalization. H emoglobin A1c resulting as 7.6. -Patient educated on type 2 diabetes mellitus diagnosis. Patient provided with glucose meter, lancing devices, testing strips, control solution, and battery for her glucometer upon discharge. -Patient started on metformin 500 mg twice daily and instructed that she will need to monitor her blood glucose levels daily and document these findings in a daily log/sternal to bring with her to her next doctor's appointment as additional adjustments to her medication regimen may be needed. Leukocytosis -Morning labs reviewed. CBC revealing leukocytosis with WBC count of 16.28. No preoperative labs available for comparison. Postoperative hemoglobin 12.4. Morning glucose 204. Hemoglobin A1c resulting in 7.5%. Calcium 8.6. -Leukocytosis believed to be reactive secondary to surgical procedure. No signs of infection noted. Status post parathyroidectomy -Postop calcium 9.2 Will repeat in 6 hours and again tomorrow morning. Calcium levels to be replaced as indicated based upon these results. -Postoperative incisional management per primary admitting general surgery team. -Symptomatic care and pain management. Medically, patient clear for discharge at this time with no further recommendations. Patient may be discharged once cleared by primary admitting general surgery team. Thank you for allowing us to participate in the care of this pleasant patient. Do not hesitate to contact us with questions. Someone can be reached from the [facility]ist group all hours of the day at [phone] or via [employer]. Patient was seen independently by Nurse Practitioner. This document was prepared using [employer] dictation software. Please allow for errors in signal worker while rare they do occur.. I reviewed the documentation as provided by the BRANDON above, who is the original author of this note. I agree with the documented assessment and plan, with the following changes: none Objective - Vital Signs Vital signs: Vital Signs Temp 97.9 F 01/30/23 02:27 Pulse 67 01/30/23 02:27 Resp 16 01/30/23 02:27 BP 122/68 01/30/23 02:27 Pulse Ox 96 01/30/23 02:27 FiO2 Intake & Output 01/29/23 01/30/23 01/30/23 18:59 06:59 18:59 Intake Total 1350 1000 Output Total 10 Balance 1340 1000 Weight 89.9 kg Intake: IV 1350 Intake, IV Titration 1000 Amount Lactated Ringers 1,000 ml 1000 @ 125 mls/hr IV .Q8H ONE Rx#:[id number] Output: Estimated Blood Loss 10 Other: # Voids 3 2 - Labs CBC & Chem 7: 01/30/23 04:04 01/30/23 04:04 Labs: Abnormal Lab Results - Last 24 Hours (Table) 01/29/23 01/29/23 01/29/23 Range/Units 07:29 10:14 10:34 POC Glucose (mg/dL) 339 H (70-110) mg/dL Calcium 10.3 H (8.4-10.2) mg/dL PTH Intact 13.4 L (14.0-72.0) pg/mL 01/29/23 01/29/23 01/29/23 Range/Units 11:53 16:58 20:05 POC Glucose (mg/dL) 251 H 214 H 202 H (70-110) mg/dL Calcium (8.4-10.2) mg/dL PTH Intact (14.0-72.0) pg/mL 01/30/23 Range/Units 06:07 POC Glucose (mg/dL) 194 H (70-110) mg/dL Calcium (8.4-10.2) mg/dL PTH Intact (14.0-72.0) pg/mL
== END 2023-01-30 16:12 | disposition home or self-care (01) ==
LOC: OR 06:46 → 4SSUR 09:40 → OR 01-30 16:12
PROVIDERS: ATTEND Surgery
DX: D35.1 Benign neoplasm of parathyroid gland (principal); E11.9 Type 2 diabetes mellitus without complications
CPT/HCPCS: 88305; 80053; 82310; 83735; 85027; 88331; 83970; 83036; 60500; J2250; J0780; J1100; J2405; J0690; J1650; J3010; J1885 ×2; J1170; J2704; J1644; J2001

== ENCOUNTER → 2023-02-01 | Outpatient (CLI) | payer OTHER ==
--- NOTE | 2023-02-01 10:55 | MR ---
EXAMINATION TYPE: MR hip LT wo con DATE OF EXAM: 02/01/2023 COMPARISON: CT left hip January 18, 2023 HISTORY: Left hip pain x 2 weeks. Standard multiplanar, multisequence MRI departmental protocol Multiplanar, multisequence images of the pelvis were acquired without contrast. FINDINGS: Moderate axial joint space loss in both hips is fairly symmetric in appearance. There are s ymmetric small bilateral hip joint effusions. Some increased signal suspected subchondral cystic lockhart ge in the lateral aspect of the superior acetabulum is present seen best on coronal images. There is no suspicious increased T2 signal or edema in the left hip or femur. No serpiginous diminished T1 sig nal to suggest avascular necrosis. Focal tiny thin-walled cysts lateral aspect of the left femoral he ad coronal image 8 measuring up to 7 mm in size. Suspect subchondral cyst or other nonaggressive etio logy. Femoral head shape is maintained. No suspicious groin hernia or adenopathy is seen bilaterally. Muscle bulk in the bilateral thighs is maintained. Increased fluid signal or edema posterior left hi p muscle axial image 16 in region of the quadratus femoris muscle. Anteverted uterus. Urinary bladder appears within normal limits. Tiny amount of free fluid in the pel vis is noted. No suspicious bowel dilatation. IMPRESSION: Moderate degenerative change left hip has similar appearance to opposite right side. Abno rmal muscular edema posterior aspect is consistent with strain injury.
== END | disposition home or self-care (01) ==
LOC: RADMRIMAIN 07:35
DX: M25.552 Pain in left hip (principal); R60.0 Localized edema

== ENCOUNTER → 2023-02-03 | Outpatient (CLI) | payer OTHER | END | disposition home or self-care (01) | LOC: LABWHC1 09:12 | PROVIDERS: ATTEND Surgery | DX: R00.2 Palpitations (principal) | CPT/HCPCS: 36415; 82310 ==

== ENCOUNTER → 2023-03-24 | Outpatient (CLI) | payer OTHER ==
--- NOTE | 2023-03-25 07:27 | MR ---
EXAMINATION TYPE: MR lumbar spine wo con DATE OF EXAM: 03/24/2023 COMPARISON: HISTORY: Low back pain into left leg CONTRAST: 0 mL intravenous . TECHNIQUE: Multiplanar, multisequence images of the lumbar spine were acquired. FINDINGS: L5-S1: Some Modic type II degenerative endplate changes are L5-S1. There is narrowing of the disc hei ght. Moderate disc bulging is anterior thecal sac contact. No spinal canal stenosis is evident. No di splacement of the exiting nerve roots is evident. Neural foramen are patent. L4-L5: Left paracentral disc bulge is present. Some subligamentous disc extension extends beyond the endplate of L4 and L5. Mild anterior thecal sac contact is present slightly greater to the left parac entral region. No AP spinal canal stenosis is present. Neural foramen are patent. L3-L4: Broad-based disc bulge is present with anterior thecal sac flattening. No AP spinal canal sten osis is present. Neural foramen are patent. L2-L3: Mild disc bulge is present with anterior thecal sac contact. No AP spinal canal stenosis is pr esent. Neural foramen are patent. L1-L2: No significant disc bulge or disc herniation. No spinal canal stenosis. No foraminal stenosi s. . T12-L1: No significant disc bulge or disc herniation. No spinal canal stenosis. No foraminal stenos is. . Cord terminates at the L1 level. IMPRESSION: 1. Left paracentral disc bulging L4-5 has mild anterior thecal sac compression. 2. Moderate disc bulging with minimal anterior thecal sac compression L5-S1. There is loss of disc he ight with chronic endplate degenerative changes.
== END | disposition home or self-care (01) ==
LOC: RADMRIMAIN 11:37
DX: M51.16 Intervertebral disc disorders with radiculopathy, lumbar region (principal); M47.26 Other spondylosis with radiculopathy, lumbar region
CPT/HCPCS: 72148

== ENCOUNTER → 2023-04-05 | Outpatient (CLI) | payer OTHER ==
--- NOTE | 2023-04-07 08:07 | MM ---
Reason for Exam: Screening (asymptomatic). Last mammogram was performed 1 year(s) and 4 month(s) ago. Patient History: Menarche at age 11. First Full-Term at age 29. Late child-bearing (after 30). Postmenopausal. Risk Values: Seema 5 year model risk: 1.8%. NCI Lifetime model risk: 10.5%. Prior Study Comparison: 05/18/2019 Bilateral Screening Mammogram, [facility]. 05/28/2020 Bilateral Screening Mammogram, [facility]. 12/02/2021 Bilateral Screening Mammogram, [facility]. Tissue Density: The breast tissue is heterogeneously dense. This may lower the sensitivity of mammography. Findings: Analyzed By CAD. There is no suspicious group of microcalcifications or new suspicious mass in either breast. Stable nodule left breast. Overall Assessment: Benign, BI-RAD 2 Management: Screening Mammogram of both breasts in 1 year. . Patient should continue monthly self-breast exams. A clinical breast exam by your physician is recommended on an annual basis. This exam should not preclude additional follow-up of suspicious palpable abnormalities. Note on Seema scores and lifetime risk: 1. A Seema score greater than 3% is considered moderate risk. If this is the case, consider specialist referral to assess eligibility for a risk reducing agent. 2. If overall lifetime risk for the development of breast cancer is 20% or higher, the patient may qualify for future screening with alternating mammogram and breast MRI. Electronically signed and approved by: David Oneill M.D. Radiologis
== END | disposition home or self-care (01) ==
LOC: RADMAMWWP 11:31
DX: Z12.31 Encounter for screening mammogram for malignant neoplasm of breast (principal); Z78.0 Asymptomatic menopausal state
CPT/HCPCS: 77067

== ENCOUNTER → 2023-10-29 | Outpatient (CLI) | payer OTHER ==
[2023-10-29 16:37] LABS: BUN/Creat Ratio 28.38 Ratio (12.00-20.00); Blood Urea Nitrogen 22.7 mg/dL (9.0-27.0); Carbon Dioxide 23.9 mmol/L (21.6-31.8); Chloride 108 mmol/L (96-109); Glucose 154 mg/dL (70-110); Potassium 3.9 mmol/L (3.5-5.5); Sodium 143 mmol/L (135-145)
[2023-10-29 16:38] LABS: ALT 9 U/L (8-44); AST 14 U/L (13-35); Albumin 4.3 g/dL (3.8-4.9); Albumin/Globulin Ratio 1.72 Ratio (1.60-3.17); Alkaline Phosphatase 71 U/L (41-126); Calcium 9.6 mg/dL (8.7-10.3); Globulin 2.5 g/dL (1.6-3.3); Total Bilirubin 0.6 mg/dL (0.3-1.2); Total Protein 6.8 g/dL (6.2-8.2)
== END | disposition home or self-care (01) ==
LOC: LABWHC1 11:31
PROVIDERS: ATTEND Internal Medicine Endocrinology, Diabetes & Metabolism
DX: Z00.00 Encounter for general adult medical examination without abnormal findings (principal); E04.2 Nontoxic multinodular goiter; E21.0 Primary hyperparathyroidism
CPT/HCPCS: 36415; 80053; 82306; 83970; 84443

== ENCOUNTER → 2024-04-10 | Outpatient (CLI) | payer OTHER ==
--- NOTE | 2024-04-12 13:13 | MM ---
Reason for Exam: Screening (asymptomatic). Last screening mammogram was performed 12 month(s) ago. Patient History: Menarche at age 11. First Full-Term at age 29. Late child-bearing (after 30). Postmenopausal. Risk Values: Seema 5 year model risk: 1.9%. NCI Lifetime model risk: 10.2%. Prior Study Comparison: 05/28/2020 Bilateral Screening Mammogram, [facility]. 12/02/2021 Bilateral Screening Mammogram, [facility]. 04/05/2023 Bilateral MG screening mammo w CAD, [facility]. Tissue Density: There are scattered areas of fibroglandular density. Findings: Analyzed By CAD. Right breast: There is no suspicious group of microcalcifications or new suspicious mass. Left breast: There is no suspicious group of microcalcifications or new suspicious mass. Overall Assessment: Negative, BI-RAD 1 Management: Screening Mammogram of both breasts in [address] [facility] will attempt to contact patient to return for supplemental views and ultrasound if indicated. Patient should continue monthly self-breast exams. A clinical breast exam by your physician is recommended on an annual basis. This exam should not preclude additional follow-up of suspicious palpable abnormalities. Note on Seema scores and lifetime risk: 1. A Seema score greater than 3% is considered moderate risk. If this is the case, consider specialist referral to assess eligibility for a risk reducing agent. 2. If overall lifetime risk for the development of breast cancer is 20% or higher, the patient may qualify for future screening with alternating mammogram and breast MRI. Electronically signed and approved by: Arcadio Hadley DO
== END | disposition home or self-care (01) ==
LOC: RADMAMWWP 11:16
PROVIDERS: ATTEND Family Medicine
DX: Z12.31 Encounter for screening mammogram for malignant neoplasm of breast (principal); Z78.0 Asymptomatic menopausal state
CPT/HCPCS: 77067

== ENCOUNTER → 2025-04-12 | Outpatient (CLI) | payer OTHER ==
--- NOTE | 2025-04-12 13:31 | MM ---
Reason for Exam: Screening (asymptomatic). Last screening mammogram was performed 12 month(s) ago. Patient History: Menarche at age 11. First Full-Term at age 29. Late child-bearing (after 30). Postmenopausal. Risk Values: Seema 5 year model risk: 2.0%. NCI Lifetime model risk: 10.0%. Prior Study Comparison: 12/02/2021 Bilateral Screening Mammogram, [facility]. 04/05/2023 Bilateral MG screening mammo w CAD, [facility]. 04/10/2024 Bilateral MG screening mammo w CAD, [facility]. Tissue Density: There are scattered areas of fibroglandular density. Findings: Analyzed By CAD. There is stable 7 mm circumscribed oval mass in the medial aspect left breast. There is no suspicious group of microcalcifications or new suspicious mass in either breast. Overall Assessment: Negative, BI-RAD 1 Management: Screening Mammogram of both breasts in 1 year. . Patient should continue monthly self-breast exams. A clinical breast exam by your physician is recommended on an annual basis. This exam should not preclude additional follow-up of suspicious palpable abnormalities. Note on Seema scores and lifetime risk: 1. A Seema score greater than 3% is considered moderate risk. If this is the case, consider specialist referral to assess eligibility for a risk reducing agent. 2. If overall lifetime risk for the development of breast cancer is 20% or higher, the patient may qualify for future screening with alternating mammogram and breast MRI. [facility], , 04/12/2025 1:28 PM. Electronically signed and approved by: Lobito Walker M.D.
== END | disposition home or self-care (01) ==
LOC: RADMAMWWP 12:43
PROVIDERS: ATTEND General Practice
DX: Z12.31 Encounter for screening mammogram for malignant neoplasm of breast (principal); R92.323 Mammographic fibroglandular density, bilateral breasts; Z78.0 Asymptomatic menopausal state
CPT/HCPCS: 77067